=== PATIENT | female | born 1960 | race African-American/Black ===

== ENCOUNTER → 2017-12-23 | Day surgery (SDC) | payer OTHER ==
[~2017-12-23] MED LIST: BUPIVACAINE 0.5%/EPI 30 ML SDV INJ ONE; CLINDAMYCIN PHOS 900MG/ D5W 50 50 ML IV ONE; MELOXICAM7.5 MG PO
--- NOTE | 2017-12-24 09:12 | Operative Report ---
DATE OF PROCEDURE: December 23, 2017 PREOPERATIVE DIAGNOSES 1. Right knee medial meniscus tear. 2. Right knee degenerative joint disease of the knee. POSTOPERATIVE DIAGNOSES 1. Right knee medial meniscus tear. 2. Right knee degenerative joint disease of the knee. OPERATIONS/PROCEDURES PERFORMED 1. The patient underwent a right knee examination under anesthesia. 2. Right knee arthroscopy. 3. Right knee partial medial meniscectomy. 4. Right knee chondroplasty of the patella, trochlea, medial femoral condyle, medial tibial plateau, lateral femoral condyle, and lateral tibial plateau. DEPARTMENT COORDINATOR: None. ANESTHESIA: General endotracheal intubation anesthesia. IV FLUIDS: Per the anesthesia record. BRIEF DESCRIPTION OF THE PATIENT'S OPERATIVE PROCEDURE: Ms. Armijo was taken to the operating room and placed in the supine position on the operating table. Following induction of general anesthesia, as well as endotracheal intubation, the patient's right lower extremity was examined under anesthesia. She was found to have a mild effusion within the joint. The patient's ligaments were stable. The patient's right lower extremity was prepped and draped in the standard surgical fashion. A 2-portal technique was used to provide this patient arthroscopic evaluation of the knee joint. Examination of the suprapatellar pouch, medial and lateral gutters found no evidence of loose bodies. There was, however, evidence of chondromalacia of the patellar and trochlear surfaces. Scope was advanced in the medial compartment. Examination of the medial compartment demonstrated a torn and macerated medial meniscus beginning in the mid-meniscus and extending to the posterior horn. There was also chondromalacia of the articulating surfaces. A combination of biting forceps and motorized shaver were used to resect the torn portion of the meniscus. Chondroplasties of the medial femoral condyle and medial tibia plateau were performed at this time. Scope was advanced to intercondylar notch. The anterior cruciate ligament was identified and found to be intact. Scope was advanced in the lateral compartment. There was chondromalacia of the articulating surfaces. A shaver was used to provide a chondroplasty of both the lateral femoral condyle and lateral tibial plateau. Scope was then placed in the suprapatellar pouch, and chondroplasties of the patella and trochlea were performed. The knee was then deflated of its sterile normal saline. Each of the portal sites were closed using 4-0 nylon suture. The portal sites as well as the knee itself were injected with 0.5% Marcaine with epinephrine. Sterile dressings were applied. The patient was awakened, and taken to the postanesthesia care unit in stable condition. Job#: [id number] BRYAN
== END | disposition home or self-care (01) ==
LOC: OR 06:35
PROVIDERS: ATTEND Specialist
DX: S83.241A Other tear of medial meniscus, current injury, right knee, initial encounter (principal); M17.11 Unilateral primary osteoarthritis, right knee; M22.41 Chondromalacia patellae, right knee; R73.03 Prediabetes; E78.00 Pure hypercholesterolemia, unspecified; Z88.0 Allergy status to penicillin; X58.XXXA Exposure to other specified factors, initial encounter; Z01.810 Encounter for preprocedural cardiovascular examination; Z68.30 Body mass index [BMI] 30.0-30.9, adult
CPT/HCPCS: 93005

== ENCOUNTER 2018-01-22 10:59 | Outpatient (RCR) | payer OTHER ==
[~2018-01-22 10:59] MED LIST changes: -BUPIVACAINE 0.5%/EPI 30 ML SDV INJ ONE; -CLINDAMYCIN PHOS 900MG/ D5W 50 50 ML IV ONE
== END 2018-01-23 ==
LOC: PT 10:59
PROVIDERS: ATTEND Specialist
DX: M25.561 Pain in right knee (principal)

== ENCOUNTER 2018-01-29 11:00 | Outpatient (RCR) | payer OTHER | END 2018-02-23 | LOC: PT 11:00 | PROVIDERS: ATTEND Specialist | DX: M25.561 Pain in right knee (principal) ==

== ENCOUNTER → 2018-09-08 | Day surgery (SDC) | payer OTHER ==
[~2018-09-08] MED LIST changes: +AMLODIPINE BESYL5 MG PO; +ATORVASTATIN CA20 MG PO; +CLINDAMYCIN PHOS 900MG/ 50ML 50 ML IV ONE; +DESFLURANE 240 ML BTL INH ONE; +DEXAMETHASONE SOD PHOS 10 MG/1 ML VIAL ONE; +DEXAMETHASONE SOD PHOS INJ 4 MG/ML VIAL ONE; +EPINEPHRINE HCL 1:1000 1ML 1 MG/ML AMP ONE; +FENTANYL CITRATE/PF 100MCG/2 ML INJ ONE; +GLYCOPYRROLATE INJ 1MG/ 5 ML SYR ONE; +LIDOCAINE 2% /EPINEPHRINE 20 ML SDV INJ ONE; +LIDOCAINE HCL 2% LOCAL INJ 5 ML SDV VIAL INJ ONE; +MIDAZOLAM HCL 2 MG/2 ML VIAL ONE; +NAPROXEN250 MG PO; +NEOSTIGMINE 5 MG/5ML SYR ONE; +ONDANSETRON HCL INJ 2MG/ML 2ML 2 MG/ML VIAL ONE; +PROPOFOL IV EMULSION 10 MG/ML 20 ML VIAL ONE; +ROCURONIUM BROMIDE 10 MG/ML 5ML VIAL ONE; +ROPIVACAINE 0.5% 5 MG/ML 30 ML SDV ONE
--- OUTSIDE RECORDS SUMMARY | 2018-09-08 05:38 | XMS REPORT ---
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 Allergies, Adverse Reactions, Alerts Allergy Name Allergy Type Status Severity Reaction(s) Onset Date Inactive Date Treating Clinician Comments Penicillins DA Active SV 2016-09-19 00:00:00 Medications This patient has no known medications. 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 COMPARISON: None available. HISTORY: shoulder pain FINDINGS : MUSCLES AND TENDONS: Rotator Cuff: Tendons: Full thickn ess tear of the supraspinatus tendon with minimal retraction. Muscles: No focal muscle atrophy. Biceps Tendon: The l jan head of the biceps tendon is intact within the bicipital groove. ACROL OHUMERAL JOINT: Glenoid Labrum: Superior labral fraying. Articula r Cartilage: Partial-thickness cartilage loss. AC JOINT AND ACROMION: Moderate hypertrophic degenerative changes of the acromioclavicular joint. Rot ator cuff insertion. BONE: Bone marrow edema at the rotator cuff insertion. No acute fracture. SOFT TISSUES: Subacromial subdeltoid bursal fluid. IMPRESSION: Supraspinatus full-thickness tear of the anterior fibers with minimal retraction. No atrophy. Acromioclavicular arthrosis with subacromial spurring. Signed by: Dr. Kayleigh Landis M.D. on 08/05/2018 11:4 8 AM Dictated By: KAYLEIGH LANDIS MD [id number] Transcribed By: HARIS on 08/05/18 1148 COPY TO: NONA THOMAS NP
[2018-09-08 11:00] VITALS: BP 140/85
--- NOTE | 2018-09-09 17:05 | Operative Report ---
DATE OF PROCEDURE: September 08, 2018 PREOPERATIVE DIAGNOSES: 1. Left shoulder rotator cuff tear. 2. Left shoulder acromioclavicular joint arthritis. POSTOPERATIVE DIAGNOSES: 1. Left shoulder rotator cuff tear. 2. Left shoulder acromioclavicular joint arthritis. 3. Left shoulder synovitis. 4. Left shoulder partial biceps tendon tear. 5. Left shoulder partial labral tear. PROCEDURES PERFORMED: The patient underwent a 1. Left shoulder examination under anesthesia. 2. Left shoulder arthroscopy. 3. Left shoulder arthroscopic debridement of synovitis. 4. Left shoulder arthroscopic debridement of a partial labral tear. 5. Left shoulder arthroscopic debridement of a partial biceps tendon tear. 6. Left shoulder arthroscopic rotator cuff reconstruction. 7. Left shoulder arthroscopic subacromial decompression and acromioplasty. 8. Left shoulder arthroscopic distal clavicle resection. PHYSICAL CHEMIST: Alison Perdue. ANESTHESIA: General endotracheal intubation anesthesia. She also underwent a regional block. INTRAVENOUS FLUIDS: Per the anesthesia record. OPERATIVE PROCEDURE IN DETAIL: Ms. Armijo was taken to the operating room and placed in the supine position on the operating room table. Following the induction of general anesthesia as well as endotracheal intubation and a regional block, the patient's operating room table was converted to a beach chair type position. Examination of the left shoulder demonstrated no gross abnormalities. There was full passive range of motion in the shoulder joint. There was no evidence of instability. The shoulder and upper extremity were prepped and draped in standard surgical fashion. Standard posterolateral and anterior portals were created without difficulty. A scope was placed in the shoulder joint atraumatically. An examination of the glenohumeral articulation demonstrated no significant evidence of chondromalacia. There was diffuse synovitis in the shoulder joint. The biceps tendon was found to be contained within the shoulder joint. There was a partial tear of the biceps tendon as it exited the shoulder. There was also a labral tearing along the superior posterior rim. There were no loose bodies in the shoulder joint. There was a full-thickness rotator cuff tear at the leading edge of the supraspinatus tendon. A shaver was placed in the shoulder joint. The biceps tendon was debrided. The synovitis was debrided. The shaver was also used to debride the labral injury. Care was then taken to debride the rotator cuff injury. The insertion site was also debrided to a bleeding bony bed. The shoulder was deflated of its sterile normal saline. The scope was translated to the subacromial space. A lateral portal was created through an outside-in technique. Significant bursal inflammation was encountered. A bursectomy was performed. The rotator cuff injury was easily identified and further debrided. An anterolateral accessory portal was created. An anchor was inserted into the greater tuberosity of the humerus. The suture arms from that anchor were then woven through the rotator cuff tissue, and the rotator cuff tissue was advanced into its normal insertion site. This was tied firmly, resulting in a complete repair of the patient's injury. The patient had a significantly downward-sloping acromion with anterior osteophytes. The coracoacromial ligament was resected. An acromioplasty was performed at this time. The anterior portal was converted to the subacromial space, and the AC joint was identified. The shaver was then used to resect a 1 cm section of the distal clavicle. This was confirmed under direct vision arthroscopically. The shoulder was then inflated of its sterile normal saline. The portal sites were closed, and the patient was provided a shoulder immobilizer, awakened and taken to the postanesthesia care unit in stable condition. Job#: [id number] EV
== END | disposition home or self-care (01) ==
LOC: OR 05:34
PROVIDERS: ATTEND Specialist
DX: M75.122 Complete rotator cuff tear or rupture of left shoulder, not specified as traumatic (principal); M19.012 Primary osteoarthritis, left shoulder; M65.812 Other synovitis and tenosynovitis, left shoulder; S46.212A Strain of muscle, fascia and tendon of other parts of biceps, left arm, initial encounter; S43.432A Superior glenoid labrum lesion of left shoulder, initial encounter; E78.00 Pure hypercholesterolemia, unspecified; R73.03 Prediabetes; I10 Essential (primary) hypertension; X58.XXXA Exposure to other specified factors, initial encounter; Z88.0 Allergy status to penicillin; Z01.810 Encounter for preprocedural cardiovascular examination; Z68.30 Body mass index [BMI] 30.0-30.9, adult
CPT/HCPCS: 29824; 29826; 29827; 93005; J0171; J1100 ×2; J2001 ×2; J2250; J2405; J2704; J2795; J3490

== ENCOUNTER → 2019-02-10 | Outpatient (CLI) | payer OTHER ==
[~2019-02-10] MED LIST changes: -CLINDAMYCIN PHOS 900MG/ 50ML 50 ML IV ONE; -DESFLURANE 240 ML BTL INH ONE; -DEXAMETHASONE SOD PHOS 10 MG/1 ML VIAL ONE; -DEXAMETHASONE SOD PHOS INJ 4 MG/ML VIAL ONE; -EPINEPHRINE HCL 1:1000 1ML 1 MG/ML AMP ONE; -FENTANYL CITRATE/PF 100MCG/2 ML INJ ONE; -GLYCOPYRROLATE INJ 1MG/ 5 ML SYR ONE; -LIDOCAINE 2% /EPINEPHRINE 20 ML SDV INJ ONE; -LIDOCAINE HCL 2% LOCAL INJ 5 ML SDV VIAL INJ ONE; -MIDAZOLAM HCL 2 MG/2 ML VIAL ONE; -NEOSTIGMINE 5 MG/5ML SYR ONE; -ONDANSETRON HCL INJ 2MG/ML 2ML 2 MG/ML VIAL ONE; -PROPOFOL IV EMULSION 10 MG/ML 20 ML VIAL ONE; -ROCURONIUM BROMIDE 10 MG/ML 5ML VIAL ONE; -ROPIVACAINE 0.5% 5 MG/ML 30 ML SDV ONE
--- NOTE | 2019-02-10 15:07 | Diagnostic Imaging Report ---
Exam: Ultrasound extremity Limited nonvascular History: Localized swelling. Lung left lower extremity posterior mid aspect. Findings: Transverse and sagittal ultrasonographic imaging was obtained of the left lower extremity posterior mid aspect with grayscale and color Doppler imaging. 0.7 x 0.6 x 0.5 cm anechoic lesion immediately deep to the skin surface on the posterior left lower leg could be due to a small slightly complex cyst. Impression: 0.7 x 0.6 x 0.5 cm anechoic lesion immediately deep to the skin surface on the posterior left lower leg could be due to a small slightly complex cyst. Signed by: Dr. Ermias Mejia M.D. on 02/10/2019 3:04 PM
== END ==
LOC: US 11:11
PROVIDERS: ATTEND Internal Medicine
DX: R22.42 Localized swelling, mass and lump, left lower limb (principal)
CPT/HCPCS: 76882

== ENCOUNTER → 2019-04-26 | Outpatient (CLI) | payer OTHER ==
--- NOTE | 2019-04-26 09:55 | Diagnostic Imaging Report ---
Radiographs of the right knee - 3 views HISTORY: Pain COMPARISON: None available. FINDINGS: Bones: No acute displaced fracture. Osseous alignment is within normal limits. Joints: Moderate tricompartmental degenerative arthrosis most pronounced in the medial compartment with joint space loss and peripheral osteophytosis. No osseous erosion Soft tissues: Suprapatellar effusion IMPRESSION: Moderate tricompartmental degenerative arthrosis most pronounced in the medial compartment with joint space loss and peripheral osteophytosis. No osseous erosion Signed by: Dr. Ermias Mejia M.D. on 04/26/2019 9:51 AM
== END ==
LOC: MAMMO 08:31
PROVIDERS: ATTEND Internal Medicine
DX: Z12.31 Encounter for screening mammogram for malignant neoplasm of breast (principal); S83.8X1D Sprain of other specified parts of right knee, subsequent encounter
CPT/HCPCS: 77067

== ENCOUNTER → 2020-05-18 | Outpatient (CLI) | payer OTHER | LOC: MAMMO 09:37 | PROVIDERS: ATTEND Internal Medicine | DX: Z12.31 Encounter for screening mammogram for malignant neoplasm of breast (principal) | CPT/HCPCS: 77067 ==

== ENCOUNTER → 2021-05-07 | Outpatient (CLI) | payer OTHER | LOC: MAMMO 13:33 | PROVIDERS: ATTEND Internal Medicine | DX: Z12.31 Encounter for screening mammogram for malignant neoplasm of breast (principal) | CPT/HCPCS: 77067 ==

== ENCOUNTER → 2022-02-20 | Outpatient (CLI) | payer OTHER | LOC: RAD 10:43 | PROVIDERS: ATTEND Internal Medicine | DX: M77.8 Other enthesopathies, not elsewhere classified (principal) ==